=== PATIENT | male | born 1960 | race Caucasian/White ===

== ENCOUNTER 2024-01-26 12:16 | Emergency (ER) | payer MEDICARE, SELFPAY ==
[2024-01-26] VITALS (12 sets, daily range): BP systolic 126–171; BP diastolic 74–92; PULSE 70–90; RESP 13–18; TEMP 36.5; O2SAT 95–99
--- NOTE | 2024-01-26 12:24 | ECG_ITS ---
SEE SCANNED COPY FOR CONFIRMED REPORT MTDD
[2024-01-26 12:40] LABS: Basophils Percent Auto 0.6 % (0.2-1.2); Eosinophils Absolute Auto 0.1 K/mm3 (0-0.3); Eosinophils Percent Auto 1.9 % (0-4.4); Hematocrit 47.3 % (42.0-52.0); Hemoglobin 15.6 g/dL (14.0-18.0); Immature Granulocyte Absolute 0.05 K/mm3 (0.00-0.031); Immature Granulocyte Percent A 0.7 % (0-0.5); Lymphocytes Absolute Auto 2.55 K/mm3 (0.9-3.2); Lymphocytes Percent Auto 37.9 % (18.3-44.2); Mean Corpuscular Hemoglobin 30.2 pg (26-34); Mean Corpuscular Volume 91.5 fl (80-100); Mean Platelet Volume 9.5 fl (7.4-10.4); Monocytes Absolute Auto 0.6 K/mm3 (0.1-0.6); Monocytes Percent Auto 9.2 % (2.6-8.5); Neutrophils Absolute Auto 3.3 K/mm3 (1.3-6.7); Neutrophils Percent Auto 49.7 % (45.5-73.1); Platelet Count Result 250 k/mm3 (150-375); Red Blood Count 5.17 M/mm3 (4.6-6.20); Red Cell Distribution Width 12.4 % (11.5-14.5); White Blood Count 6.7 K/mm3 (4.5-10.0)
[2024-01-26 12:51] LABS: Alanine Aminotransferase 22 U/L (6-50); Albumin Level 4.4 g/dL (3.5-5.1); Alkaline Phosphatase 65 U/L (38-126); Anion Gap 11 mmol/L (4-12); Aspartate Amino Transferase 23 U/L (17-59); Bilirubin,Total 1.3 mg/dL (0.2-1.3); Blood Urea Nitrogen 10 mg/dL (9-20); Calcium 9.1 mg/dL (8.4-10.2); Carbon Dioxide 19 mmol/L (22-30); Chloride 105 mmol/L (98-107); Estimated CRCL calculation 81 ml/min; Estimated Glomerular Filt Rate > 60; Glucose 149 mg/dL (65-110); Potassium 3.8 mmol/L (3.4-5.0); Sodium 135 mmol/L (137-145)
[2024-01-26] MEDS: MECLIZINE HCL 25 MG TABLET PO (13:58)
--- NOTE | 2024-01-26 14:34 | ED.GENADULT ---
HPI - General Adult General Chief complaint: Unspecified Stated complaint: feels off balance Time Seen by Provider: 01/26/24 13:09 History of Present Illness HPI narrative: patient is a 63-year-old male who presents ER with dizziness. He is driving when he started to feel off balance /lightheaded. When he stopped driving when to convenience store he was better. When he got back in the car and started moving he felt the same sensation. No symptoms currently. No numbness or weakness when arm or leg. No slurred speech no facial droop. Denies any sinus congestion sore throat or productive cough. No ringing in his ear. Related Data Allergies Allergy/AdvReac Type Severity Reaction Status Date / Time codeine AdvReac Dizziness Verified 01/26/24 12:23 Review of Systems Review of Systems: All systems reviewed & are unremarkable except as noted in HPI and below Constitutional: Constitutional: Reports no additional constitutional complaints ENT: Reports dizziness, Denies nasal congestion and Denies sore throat Cardiovascular: Cardiovascular: Reports no additional cardiovascular complaints Respiratory: Respiratory: Reports no additional respiratory complaints Neurologic: Reports system reviewed and no additional complaints, except as documented PMFSH Past Medical History Medical History (Updated 01/26/24 @ 15:31 by Randy Malagon MD) Healthy adult male Surgical History Surgical History (Updated 01/26/24 @ 15:27 by Randy Malagon MD) History of skin surgery left forearm with grafting Exam Narrative: GENERAL: Well-appearing, well-nourished, and in no acute distress. HEAD: Normocephalic, atraumatic. EYES: PERRL and EOMI. ENT: Mucous membranes moist. however the left TM with air bubbles behind the. Ear canals clear bilaterally. Normal right TM NECK: Supple. CHEST: Clear to auscultation. No respiratory distress. HEART: Regular rate and rhythm. Normal peripheral pulses. EXTREMITIES: Normal range of motion. No edema. SKIN: Warm, dry, no rash. NEURO: Alert and oriented x3. NIH stroke scale of 0. No upper or lower extremity drift. Normal [id number] testing finger-nose testing. No facial asymmetry. Normal speech. PSYCH: Normal mood and affect. Course Course Emergency Course: patient resting comfortably. No dizziness here. Ambulates a steady gait. Will discharge home with some meclizine. Suspect increased fluid pressure behind the left ear is causing some motion sickness/vertigo. Vital Signs Vital signs: Vital Signs Temperature 97.7 F 01/26/24 12:19 Pulse Rate 90 01/26/24 12:19 Respiratory Rate 17 01/26/24 12:19 Blood Pressure 171/92 H 01/26/24 12:19 Pulse Oximetry 97 01/26/24 12:19 Oxygen Delivery Room Air 01/26/24 12:19 Temperature 97.7 F 01/26/24 12:19 Pulse Rate 78 01/26/24 14:19 Respiratory Rate 16 01/26/24 13:51 Blood Pressure 143/87 H 01/26/24 14:19 Pulse Oximetry 98 01/26/24 13:51 Oxygen Delivery Room Air 01/26/24 12:19 Medical Decision Making Vital Signs Vital Signs: Vital Signs Temperature 97.7 F 01/26/24 12:19 Pulse Rate 90 01/26/24 12:19 Respiratory Rate 17 01/26/24 12:19 Blood Pressure 171/92 H 01/26/24 12:19 Pulse Oximetry 97 01/26/24 12:19 Oxygen Delivery Room Air 01/26/24 12:19 Temperature 97.7 F 01/26/24 12:19 Pulse Rate 78 01/26/24 14:19 Respiratory Rate 16 01/26/24 13:51 Blood Pressure 143/87 H 01/26/24 14:19 Pulse Oximetry 98 01/26/24 13:51 Oxygen Delivery Room Air 01/26/24 12:19 Lab Data 01/26/24 12:33 01/26/24 12:33 Labs: Lab Results 01/26/24 Range/Units 12:33 WBC 6.7 (4.5-10.0) K/mm3 RBC 5.17 (4.6-6.20) M/mm3 Hgb 15.6 (14.0-18.0) g/dL Hct 47.3 (42.0-52.0) % MCV 91.5 (80-100) fl MCH 30.2 (26-34) pg MCHC 33.0 (32-36) g/dl RDW 12.4 (11.5-14.5) % Plt Count 250 (150-375) k/mm3 MPV 9.5 (7.4-1
== END 2024-01-26 15:37 | disposition home or self-care (01) ==
PROVIDERS: Emergency Medicine; Emergency Provider Emergency Medicine
DX: R42 Dizziness and giddiness (principal)
CPT/HCPCS: 36415; 80053; 85025; 93005; 99284; A9270